=== PATIENT | female | born 1955 | race Caucasian/White ===

== ENCOUNTER → 2017-02-25 | Outpatient (CLI) | payer BC, OTHER ==
[~2017-02-25] VITALS: Ht 180.3 cm; Wt 82.1 kg
[~2017-02-25] MED LIST: DOCU-143 PO; HYDR-3812 PO; LISI-556 PO; METF500T4 PO; SIMV40TA4 PO
[2017-02-25 14:41] VITALS: BP 121/76
== END ==
LOC: PREOP 05:41
PROVIDERS: ATTEND Surgery
DX: Z01.818 Encounter for other preprocedural examination (principal); Z11.2 Encounter for screening for other bacterial diseases; C43.61 Malignant melanoma of right upper limb, including shoulder
CPT/HCPCS: 87081

== ENCOUNTER 2017-02-26 08:11 | Day surgery (SDC) | payer BC ==
[~2017-02-26] VITALS: Ht 180.3 cm; Wt 82.1 kg
[~2017-02-26 08:11] MED LIST changes: -DOCU-143 PO; -HYDR-3812 PO
[2017-02-26] MEDS ORDERED: CATHETER FLUSH 10 ML SYR IV PRN (08:45)
[2017-02-26] MEDS ORDERED: ceFAZolin 1 GM/NS 50 ML IVPB IV ONE ×2 (08:45)
--- NOTE | 2017-02-26 09:27 | Progress Note-Pre Operative ---
Pre-Operative Progress Note H&P Reviewed The H&P was reviewed, patient examined and no changes noted. Date Seen by Provider: Feb 26, 2017 Time Seen by Provider: : Date H&P Reviewed: Feb 26, 2017 Time H&P Reviewed: : Pre-Operative Diagnosis: MELANOMA RIGHT FOREARM, SKIN LESION LEFT HAND ART LARSON DO Feb 26, 2017 09:27
[2017-02-26] MEDS ORDERED: SEVOFLURANE (ULTANE) 15 ML INHAL SOLN ONE ×3 (09:29→10:45)
[2017-02-26] MEDS ORDERED: ONDANSETRON 4 MG/2 ML (SDV) Z0FRAN ONE (09:29)
[2017-02-26] MEDS ORDERED: LACTATED RINGERS 1,000 ML IV ONE (09:29)
[2017-02-26] MEDS ORDERED: proPOfol 200 MG/20 ML (DIPRIVAN) VIAL IV ONE (09:29)
[2017-02-26] MEDS ORDERED: MIDAZOLAM 2 MG/2 ML (VERSED) VIAL ONE (09:29)
[2017-02-26] MEDS ORDERED: LIDOCAINE PF 2% 5 ML (XYLOCAINE) VIAL ONE (09:29)
[2017-02-26] MEDS ORDERED: fentaNYL INJECTION 100 MCG/2 ML AMP ONE (09:29)
[2017-02-26] MEDS ORDERED: BUPIVACAINE 0.5% 30 ML (SENSORCAINE) VIAL ONE (09:30)
[2017-02-26] MEDS ORDERED: LIDOCAINE 1% INJ 20 ML (XYLOCAINE) VIAL ONE (09:30)
--- NOTE | 2017-02-26 09:33 | Progress Note ---
Subjective Date Seen by Provider: Feb 26, 2017 Time Seen by Provider: 09:32 Subjective/Events-last exam Just completed port placement. Chest x ray pending. Objective Exam Capillary Refill : General Appearance: Other (under anesthetic) Results Lab Laboratory Tests 02/26/17 08:28: Glucometer 112H Assessment/Plan Assessment/Plan Assessment/Plan aml, pancytopenia s/p port placement chest x ray pending will check on chest x ray will sign off, call for questions ART LRASON DO Feb 26, 2017 09:33
[2017-02-26] MEDS ORDERED: LACTATED RINGERS 1,000 ML IV PRN (09:38)
[2017-02-26 09:43] VITALS: BP 136/86
[2017-02-26] MEDS ORDERED: morphine INJ 10 MG/ML 1ML (SYR OR VIAL) IVP PRN (11:00)
[2017-02-26] MEDS ORDERED: ONDANSETRON 4 MG/2 ML (SDV) Z0FRAN IVP PRN (11:00)
[2017-02-26] MEDS ORDERED: MEPERIDINE (DEMEROL) INJ 50 MG/ML IVP PRN (11:00)
[2017-02-26] MEDS ORDERED: DOCU-143 PO ×2 (11:11)
[2017-02-26] MEDS ORDERED: HYDR-3812 PO ×2 (11:11)
--- NOTE | 2017-02-26 11:20 | Discharge Inst-Simple/Standard ---
Discharge Inst-Standard Discharge Medications New, Converted or Re-Newed RX: RX on Chart Patient Instructions/Follow Up Plan of Care/Instructions/FU: Follow up in clinic in 2 weeks Activity as Tolerated: No Discharge Diet: No Restrictions Other Inst to Patient Follow up Appt: Make appointment for 2 weeks. Instructions: No lifting greater than 10 pounds. No strenuous activity. May shower in 24 hours, no tub bath or soaking. Use incentive spirometer at home as directed. No Smoking Skin/Wound Care: May remove bandages. Keep wound clean and dry. Symptoms to Report: Appetite Changes, Extremity Discoloration, Numbness/Tingling, Swelling Increased , Bleeding Excessive, Eyesight Changes, Pain Increased, Urine Color Change, Constipation(Persistent), Fever over 101 degree F, Pain/Pressure in chest, Urinating Difficulty, Cough Up/Vomit Blood, Heart Beat Irreg/Pounding, Pain/ Pressure in jaw, Vaginal Bleeding Increase, Cramps in feet or legs, Lightheadedness, Pain/Pressure in shoulder, Diarrhea(Persistent), Memory Changes Suddenly, Questions/Concerns, Weight gain consecutive days, Dizziness/ Fainting, Nausea/Vomiting, Shortness of Breath, Weight gain over 2 pounds If questions or concerns contact your physician Or seek help at emergency department. JOSEPH CAMARGO APRN Feb 26, 2017 11:20 am
[2017-02-26 11:50] VITALS: BP 126/71
[2017-02-26 12:20] VITALS: BP 121/70
[2017-02-26 12:38] VITALS: BP 127/77
--- NOTE | 2017-02-26 14:27 | Progress Note-Post Operative ---
Post-Operative Progess Note Surgeon (s)/Shopper (s) Surgeon ART LARSON DO Shopper: NA Pre-Operative Diagnosis MELANOMA RIGHT FOREARM, SKIN LESION LEFT HAND Post-Operative Diagnosis SAME Procedure & Operative Findings Date of Procedure 02/26/17 Procedure Performed/Findings Excision left hand 1x2 cm and excision right forearm 8.8x4.2 cm Anesthesia Type gen Estimated Blood Loss Estimated blood loss (mL): min Specimens/Packing Specimens Removed skin lesions right forearm, and left hand ART LARSON DO Feb 26, 2017 2:27 pm
--- NOTE | 2017-02-26 16:25 | OPERATIVE REPORT ---
PROCEDURE PHYSICIAN: ART LARSON DATE OF PROCEDURE: 02/26/2017 PREOPERATIVE DIAGNOSES: 1. Melanoma right forearm. 2. Skin lesion left hand. POSTOPERATIVE DIAGNOSES: 1. Melanoma right forearm. 2. Skin lesion left hand. PROCEDURE: Excision of left hand skin lesion 1 x 2 cm and excision right forearm 8.8 x 4.2 cm. ANESTHESIA: General. ESTIMATED BLOOD LOSS: Minimal. COMPLICATIONS: None. INDICATIONS: The patient is a 61-year-old female with melanoma of the right forearm and skin lesion of the left hand. She understands the risks and benefits of the procedures and she has consented to the procedure as noted above. She understands all the risks and benefits. PROCEDURE: The patient was prepped and draped in sterile fashion. A surgical pause was performed. Left hand, local anesthetic was infiltrated to the area and an elliptical incision measuring 1 x 2 cm was made around it the taking skin and subcutaneous tissues. The skin was then closed using 3-0 nylon in a simple interrupted fashion. The area was then washed and dried and sterile bandage was applied. New instruments used. Local anesthetic was inserted into the right forearm. An elliptical incision measuring 8.8 x 4.2 cm was made around the lesion. Then the skin and subcutaneous tissue was removed. The specimen was labeled long suture lateral and short suture proximal. The skin was then mobilized using cautery. Skin was then closed using 2-0 nylon in a simple interrupted fashion. The area was then washed and dried. Mastisol and Steri-Strips were applied and sterile bandages were applied. The patient tolerated the procedure well without any complications. She was taken to recovery in stable condition. Job ID: [id number] Dictated Date: 02/26/2017 14:29:45 Application Packager Date: 02/26/2017 16:16:22 / hari
--- OUTSIDE RECORDS SUMMARY | 2017-03-04 05:25 | XMS REPORT ---
Author Author SKY CUBA eClinicalWorks Address Unknown Phone Unavailable Care Team Providers Care Supervisor Painting Department Name Role Phone SKY CUBA CP Unavailable Allergies, Adverse Reactions, Alerts Substance Reaction Event Type Codeine Info Not Available Drug Allergy Problems Problem Type Condition Code Onset Dates Condition Status Problem Actinic keratosis 702.0 Active Problem Unspecified breast screening V76.10 Active Problem Other and unspecified hyperlipidemia 272.4 Active Problem Dyslipidemia E78.5 Active Assessment Essential (primary) hypertension I10 Active Problem Hot flashes N95.1 Active Assessment Dyslipidemia E78.5 Active Assessment Hot flashes N95.1 Active Problem Essential (primary) hypertension I10 Active Problem Mixed hyperlipidemia 272.2 Active Problem Need for prophylactic vaccination and inoculation, Influenza V04.81 Active Problem Prediabetes R73.09 Active Problem Essential hypertension, benign 401.1 Active Problem Effusion of joint, other specified site 719.08 Active Problem Pain in joint, lower leg 719.46 Active Problem Spasm of muscle 728.85 Active Problem Dysfunction of Eustachian tube 381.81 Active Problem Acute bronchitis 466.0 Active Problem Other screening mammogram V76.12 Active Problem Abdominal pain, right upper quadrant 789.01 Active Problem Special screening for malignant neoplasms, colon V76.51 Active Assessment Prediabetes R73.09 Active Problem Shortness of breath 786.05 Active Problem Routine gynecological examination V72.31 Active Medications Medication Code System Code Instructions Start Date End Date Status Dosage Effexor XR [facility] [address]-60 37.5 MG Orally Once a day. May increase to 2 caps daily afte 2 weeks if no improvement Jul 25, 2015 1 capsule with food Pravastatin Sodium [facility] [address]-30 40 MG Orally 2 times a day Jul 25, 2015 1 tablet Lisinopril [facility] [address]-83 5 MG October 30, 2014 take 1 tablet (5 mg) by oral route once daily Alprazolam [facility] [address]-93 0.5 MG Aug 07, 2014 take 0.5 tablet by Oral route 2 times per day Procedures Procedure Coding System Code Date COMPLETE CBC W/AUTO DIFF WBC CPT-4 33464 Jul 25, 2015 LIPID PANEL CPT-4 90514 Jul 25, 2015 VENIPUNCT, ROUTINE* CPT-4 17718 Jul 25, 2015 GLYCATED HEMOGLOBIN TEST CPT-4 39196 Jul 25, 2015 COMPREHEN METABOLIC PANEL CPT-4 20681 Jul 25, 2015 Office Visit, Est Pt., Level 3 CPT-4 23831 Jul 25, 2015 Vital Signs Date/Time: Jul 25, 2015 Temperature 98.1 F Weight 180.8 lbs Height 71 in BMI 25.21 Index Blood Pressure Diastolic 78 mmHg Blood Pressure Systolic 118 mmHg Cardiac Monitoring Heart Rate 72 bpm Results Name Result Date Reference Range Unit Abnormality Flag A1C ----Hemoglobin A1c 5.7 [id number] 4.8-5.6 % H Written Authorization Summary Purpose eClinicalWorks Submission
--- OUTSIDE RECORDS SUMMARY | 2017-03-04 05:25 | XMS REPORT ---
Author Author [employer] [facility] Medical Staff Organization [facility] Address [address] [place], [place] [address] Phone [phone] Care Team Providers Care Look Out Tower Fire Watcher Name Role Phone MARAL OMALLEY MD PP [phone] Summary purpose TRANSITION OF CARE AUTO GENERATION Chief Complaint and Reason for Visit Admit Diagnosis 1 ABDOMINAL PAIN, RT UP QU Problem list No authorized problems tracked for continuity of care are available for this visit. Encounters No authorized problems tracked for encounter diagnoses are available for this visit. Medications No medications recorded for this patient visit Allergies, adverse reactions, alerts No allergy information is available for this patient. Immunizations No immunizations recorded for this patient visit Relevant diagnostic tests and/or laboratory data RESULTS Radiology Results [id number] Hepatobiliary Scan with EF PACs Image DATE OF EXAM: Nov 29 2014 [id number] SCAN W EF : RADIOLOGY REPORT DATE OF SERVICE: 11/29/14 HISTORY: Right upper quadrant pain RADIONUCLIDE HEPATOBILIARY SCAN WITH KINEVAC GALLBLADDER EJECTION [id number] HOURS 6.1 mCi 99m technetium Choletec was administered and abdominal imaging was performed. There is prompt uptake and excretion of the radionuclide by the liver parenchyma. Activity is readily identified in the bile ducts, gallbladder, and proximal small bowel. 1.66 mcg of Kinevac was slowly infused and further abdominal imaging was performed. Gallbladder contraction is normal with calculated ejection fraction of 84%. Patient experienced moderate pain symptomatology during the Kinevac infusion, rated by the patient as 6 on a scale of 10. IMPRESSION: 1. Normal radionuclide hepatobiliary scan and normal gallbladder ejection fraction of 84%. 2. Moderate pain symptomatology during the Kinevac infusion. Akshat Quintero MD MWDerrick/ia11/29/2014 13:28:00 / 11/29/2014 13:34:05 cc:Sky Warren PA-C This document has been electronically Signed by: On: DATE OF EXAM: Nov 29 2014 [id number] SCAN W EF : RADIOLOGY REPORT DATE OF SERVICE: 11/29/14 HISTORY: Right upper quadrant pain RADIONUCLIDE HEPATOBILIARY SCAN WITH KINEVAC GALLBLADDER EJECTION [id number] HOURS 6.1 mCi 99m technetium Choletec was administered and abdominal imaging was performed. There is prompt uptake and excretion of the radionuclide by the liver parenchyma. Activity is readily identified in the bile ducts, gallbladder, and proximal small bowel. 1.66 mcg of Kinevac was slowly infused and further abdominal imaging was performed. Gallbladder contraction is normal with calculated ejection fraction of 84%. Patient experienced moderate pain symptomatology during the Kinevac infusion, rated by the patient as 6 on a scale of 10. IMPRESSION: 1. Normal radionuclide hepatobiliary scan and normal gallbladder ejection fraction of 84%. 2. Moderate pain symptomatology during the Kinevac infusion. Akshat Quintero MD MWD/ia11/29/2014 13:28:00 / 11/29/2014 13:34:05 cc:Sky Warren PA-C This document has been electronically Signed by: AKSHAT QUINTERO On: Nov 29 20142:18P Result Amended on 2014-11-29 at 14:18:09. Previous status was DC. History of procedures Procedure Code Code Type Description Date Performed Performing Physician A9537 CPT-4 TC-99M MEBROFEN UP TO 15 MIN 11-29-2014 SKY WARREN J2805 CPT-4 SINCALIDE INJECTION 11-29-2014 SKY WARREN 76111 CPT-4 HEPATOBIL SYST IMAGE W/DRUG 11-29-2014 SKY WARREN Functional status No functional or cognitive status observations are available for this visit. Vital signs No authorized vital signs are available for this visit. Social history No Social History or smoking status observations were recorded for this visit. ( Unknown if ever smoked.) Treatment Plan No treatment plan text is available for this visit. Hospital discharge instructions No discharge instruction text is available for this visit.
--- OUTSIDE RECORDS SUMMARY | 2017-03-04 05:26 | XMS REPORT ---
Author Author Bartolome Jessica Organization eClinicalWorks Address Unknown Phone Unavailable Care Team Providers Care Educational Specialist Name Role Phone Bartolome Jessica CP Unavailable Allergies, Adverse Reactions, Alerts Substance Reaction Event Type Latex Info Not Available Drug Allergy Codeine Sulfate Info Not Available Drug Allergy Problems Problem Type Condition Code Onset Dates Condition Status Problem Benign neoplasm of skin of lower limb, including hip 216.7 Active Problem Hemangioma of skin and subcutaneous tissue 228.01 Active Problem Other seborrheic keratosis 702.19 Active Assessment 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 Active Problem Benign neoplasm of skin of upper limb, including shoulder 216.6 Active Problem Seborrheic keratoses L82.1 Active Problem Personal history of other malignant neoplasm of skin V10.83 Active Problem 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 Active Problem Benign neoplasm of skin of trunk, except scrotum 216.5 Active Problem Benign neoplasm of skin of other and unspecified parts of face 216.3 Active Problem Inflamed seborrheic keratosis 702.11 Active Problem Actinic keratosis 702.0 Active Medications Medication Code System Code Instructions Start Date End Date Status Dosage Aspir-81 [facility] [address]-99 not defined Pravastatin Sodium [facility] [address]-47 not defined Cinnamon Flavor NDC 0 not defined Effexor NDC 0 not defined Lisinopril [facility] [address]-74 not defined Prednisone NDC 0 not defined Procedures Procedure Coding System Code Date EXC MLGNT TRUNK/ARMS/LEGS LEXUS 1.1-2 CM CPT-4 81406 May 19, 2016 REPAIR SCALP/AXILLA/TRUNK/ARMS/LEGS 2.6-7.5CM CPT-4 15385 May 19, 2016 Results No Known Results Summary Purpose eClinicalWorks Submission
--- OUTSIDE RECORDS SUMMARY | 2017-03-04 05:26 | XMS REPORT ---
Author Author [facility] Medical Staff Organization [facility] Address [address] [place], [place] [address] Phone [phone] Care Team Providers Care Mortgage Funder Name Role Phone MARAL OMALLEY MD PP [phone] Summary purpose TRANSITION OF CARE AUTO GENERATION Chief Complaint and Reason for Visit No authorized Reason for Visit (Admitting Diagnosis) is available for this visit. Problem list No authorized problems tracked for [...] tests and/or laboratory data RESULTS Radiology Results [id number] SHOULDER XRAY - 3 VIEW PACs Image DATE OF EXAM: Dec 25 2014 RAD 1415-SHOULDER XRAY-3 VIEW- LEFT: RADIOLOGY REPORT DATE OF SERVICE: 12/25/14 HISTORY: Left shoulder pain LEFT SHOULDER 3 [id number] HOURS There is glenohumeral narrowing and spurring. A large exuberant osteophyte is present at the inferior aspect of the humeral head. This may represent a loose body that has fused with the humeral head. The AC joint is normal. There are no fractures. IMPRESSION: Severe glenohumeral osteoarthritis. Large osteophyte/fused or simulated loose body with the humeral head. Akshat Quintero MD MWDerrick/ny12/25/2014 10:29:00 / 12/25/2014 10:36:46 cc:Jah Crowe PA-C This document has been electronically Signed by: On: DATE OF EXAM: Dec 25 2014 RAD 1415-SHOULDER XRAY-3 VIEW- LEFT: RADIOLOGY REPORT DATE OF SERVICE: 12/25/14 HISTORY: Left shoulder pain LEFT SHOULDER 3 [id number] HOURS There is glenohumeral narrowing and spurring. A large exuberant osteophyte is present at the inferior aspect of the humeral head. This may represent a loose body that has fused with the humeral head. The AC joint is normal. There are no fractures. IMPRESSION: Severe glenohumeral osteoarthritis. Large osteophyte/fused or simulated loose body with the humeral head. Akshat Quintero MD MWDerrick/nh12/25/2014 10:29:00 / 12/25/2014 10:36:46 cc:Jah Crowe PA-C This document has been electronically Signed by: AKSHAT QUINTERO On: December 25:32P Result Amended on 2014-12-25 at 13:32:07. Previous status was MO. History of procedures No procedures recorded for this patient visit. Functional status No functional or cognitive status [...]
--- OUTSIDE RECORDS SUMMARY | 2017-03-04 05:26 | XMS REPORT ---
Author Author [facility] [employer] [facility] Medical Staff Organization [facility] [employer] [facility] Address [address] [place], [place] [address] Phone [phone] Care Team Providers Care Hot Punch Press Operator Name Role Phone MARAL OMALLEY MD PP [phone] Summary purpose TRANSITION OF CARE AUTO GENERATION [...] tests and/or laboratory data RESULTS Radiology Results [id number] Chest X-Ray - 2 View PACs Image DATE OF EXAM: 2015 RAD 0300-CHEST XRAY 2 VIEW : RADIOLOGY REPORT DATE OF SERVICE: 10/14/15 HISTORY: Cough CHEST 2 VIEWS 1520 HOURS The lungs are clear. Heart size and pulmonary vessels are normal. There is mild aortic tortuosity. There are no hilar abnormalities. IMPRESSION: Negative chest. MD KARAN Meeks/wv10/14/2015 15:33:00 / 10/14/2015 15:37:19 cc:Breana Juárez PA-C This document has been electronically Signed by: On: DATE OF EXAM: 2015 RAD 0300-CHEST XRAY 2 VIEW : RADIOLOGY REPORT DATE OF SERVICE: 10/14/15 HISTORY: Cough CHEST 2 VIEWS 1520 HOURS The lungs are clear. Heart size and pulmonary vessels are normal. There is mild aortic tortuosity. There are no hilar abnormalities. IMPRESSION: Negative chest. MD KARAN Meeks/wv10/14/2015 15:33:00 / 10/14/2015 15:37:19 cc:Breana Juárez PA-C This document has been electronically Signed by: HELEN PITTS MD On: 20156:58P Result Amended on 2015-10-14 at 18:58:39. Previous status was AK. History of procedures No procedures recorded for [...]
--- OUTSIDE RECORDS SUMMARY | 2017-03-04 05:26 | XMS REPORT ---
Author Author [facility] Medical Staff Organization [facility] Address [address] [place], [place] [address] Phone [phone] Care Team Providers Care Fish Smoker Name Role Phone MARAL OMALLEY MD PP [phone] Summary purpose TRANSITION OF CARE AUTO GENERATION [...] visit Relevant diagnostic tests and/or laboratory data No authorized results are available for this patient visit History of procedures Procedure Code Code Type Description Date Performed Performing Physician 52038 CPT-4 THERAPEUTIC EXERCISES 06-24-2015 SYED JACOBO 10244 CPT-4 PT EVALUATION 06-24-2015 SYED JACOBO 00614 CPT-4 THERAPEUTIC EXERCISES 06-26-2015 SYED JACOBO Functional status No functional or cognitive status [...]
--- OUTSIDE RECORDS SUMMARY | 2017-03-04 05:26 | XMS REPORT ---
Author Author [facility] Medical Staff Organization [facility] Address [address] [place], [place] [address] Phone [phone] Care Team Providers Care Mirror Painter Name Role Phone MARAL OMALLEY MD PP [phone] Summary purpose TRANSITION OF CARE AUTO GENERATION [...] for this patient visit History of procedures No procedures recorded for [...]
--- OUTSIDE RECORDS SUMMARY | 2017-03-04 05:26 | XMS REPORT ---
Author Author Radha Beasley [facility] eClinicalWorks Address Unknown Phone Unavailable Care Team Providers Care Prop Drawer Name Role Phone Radha Beasley Unavailable Allergies No Known Allergies Problems Problem Type Condition Code Onset Dates Condition Status Problem Benign neoplasm of skin of upper limb, including shoulder 216.6 Active Problem Other seborrheic keratosis 702.19 Active Problem Benign neoplasm of skin of lower limb, including hip 216.7 Active Problem Personal history of other malignant neoplasm of skin V10.83 Active Problem Inflamed seborrheic keratosis 702.11 Active Problem Seborrheic keratoses L82.1 Active Problem Benign neoplasm of skin of other and unspecified parts of face 216.3 Active Problem Hemangioma of skin and subcutaneous tissue 228.01 Active Problem Actinic keratosis 702.0 Active Problem Benign neoplasm of skin of trunk, except scrotum 216.5 Active Medications No Known Medications Results No Known Results Summary Purpose eClinicalWorks Submission
--- OUTSIDE RECORDS SUMMARY | 2017-03-04 05:26 | XMS REPORT ---
Author Author Radha Beasley [facility] eClinicalWorks Address Unknown Phone Unavailable Care Team Providers Care Anti Tank Missileman Name Role Phone Radha Beasley Unavailable Allergies [...]
--- OUTSIDE RECORDS SUMMARY | 2017-03-04 05:26 | XMS REPORT ---
Author Author [facility] Medical Staff Organization [facility] Address [address] [place], [place] [address] Phone [phone] Care Team Providers Care Construction Engineering Manager Name Role Phone MARAL OMALLEY MD PP [phone] Summary purpose TRANSITION OF CARE AUTO GENERATION [...]
--- OUTSIDE RECORDS SUMMARY | 2017-03-04 05:26 | XMS REPORT ---
Author Author SKY CUBA [facility] eClinicalWorks Address Unknown Phone Unavailable Care Team Providers Care Cut In Worker Name Role Phone SKY CUBA CP Unavailable Allergies No Known Allergies Problems Problem Type Condition Code Onset Dates Condition Status Problem Essential (primary) hypertension I10 Active Problem Dyslipidemia E78.5 Active Problem Mixed hyperlipidemia E78.2 Active Problem Hot flashes N95.1 Active Problem Prediabetes R73.09 Active Medications Medication Code System Code Instructions Start Date End Date Status Dosage [place] [facility] [address]-94 40 mg Orally Once a day May 13, 2016 Take 1 tablet Results No Known Results Summary Purpose eClinicalWorks Submission
--- OUTSIDE RECORDS SUMMARY | 2017-03-04 05:26 | XMS REPORT ---
Author Author [facility] Medical Staff Organization [facility] Address [address] [place], [place] [address] Phone [phone] Care Team Providers Care Patrol Lady Name Role Phone MARAL OMALLEY MD PP [phone] Summary purpose TRANSITION OF CARE AUTO GENERATION [...]
--- OUTSIDE RECORDS SUMMARY | 2017-03-04 05:26 | XMS REPORT ---
Author Author [email or web address] Medical Staff Organization [facility] Address [address] [place], [place] [address] Phone [phone] Summary purpose TRANSITION OF CARE AUTO GENERATION [...] tests and/or laboratory data RESULTS Radiology Results [id number]:00 Bilateral Screen Digital Mammo PACs Image DATE OF EXAM: Oct 29 2015 [facility] 0845-BILAT SCREEN DIG MAMMO : RADIOLOGY REPORT DATE OF SERVICE: 10/29/15 HISTORY: Screening exam BILATERAL DIGITAL SCREENING MAMMOGRAM WITH iCAD SecondLook 7.2-H+ 1105 HOURS Comparison is made with 10/19/2014 and 09/01/2013. Heterogeneously dense glandular tissue is again noted which could obscure detection of small masses. There are no irregular masses or grouped microcalculi. There is no distortion or asymmetry. Prominent skin moles bilaterally are stable. IMPRESSION: Stable benign mammograms BI-RADS II. Akshat Quintero MD Derrick/wv10/29/2015 11:40:00 / 10/29/2015 11:45:35 cc:Joaquim Warren PA-C This document has been electronically Signed by: On: DATE OF EXAM: Oct 29 2015 [facility] 0845-BILAT SCREEN DIG MAMMO : RADIOLOGY REPORT DATE OF SERVICE: 10/29/15 HISTORY: Screening exam BILATERAL DIGITAL SCREENING MAMMOGRAM WITH iCAD SecondLook 7.2-H+ 1105 HOURS Comparison is made with 10/19/2014 and 09/01/2013. Heterogeneously dense glandular tissue is again noted which could obscure detection of small masses. There are no irregular masses or grouped microcalculi. There is no distortion or asymmetry. Prominent skin moles bilaterally are stable. IMPRESSION: Stable benign mammograms BI-RADS II. Akshat Quintero MD MWD/wv10/29/2015 11:40:00 / 10/29/2015 11:45:35 cc:Joaquim Warren PA-C This document has been electronically Signed by: AKSHAT QUINTERO MD On: Oct 29 20151:37P Result Amended on 2015-10-29 at 13:37:20. Previous status was DC. History of procedures No procedures recorded for [...]
--- OUTSIDE RECORDS SUMMARY | 2017-03-04 05:26 | XMS REPORT ---
Author Author [facility] Medical Staff Organization [facility] Address [address] [place], [place] [address] Phone [phone] Care Team Providers Care Financial Services Rep Name Role Phone MARAL OMALLEY MD PP [phone] Summary purpose TRANSITION OF CARE AUTO GENERATION Chief Complaint and Reason for Visit Admit Diagnosis 1 ABDOMINAL PAIN, RT UP QU Problem list No authorized problems tracked for continuity of care are available for this visit. Encounters No authorized problems tracked for encounter diagnoses are available for this visit. Medications No home medications recorded for this patient visit Allergies, adverse reactions, alerts No allergy information is available for this patient. Immunizations No immunizations recorded for this patient visit Relevant diagnostic tests and/or laboratory data RESULTS Radiology Results [id number] ABD SONO COMPLETE PACs Image DATE OF EXAM: Nov 02 2014 [id number] COMPLETE SONO : RADIOLOGY REPORT DATE OF SERVICE: 11/02/14 HISTORY: Right upper quadrant abdominal pain COMPLETE ABDOMINAL SONOGRAM 0830 HOURS The gallbladder is at the upper limits of normal in size without wall thickening or definite gallstones. The bile ducts are normal in caliber. The liver, spleen, and pancreas are normal. The kidneys are unobstructed with no masses or calculi. The abdominal aorta and inferior vena cava are normal. There is no ascites. IMPRESSION: Mildly distended gallbladder. If there is clinical or laboratory evidence of gallbladder disease, suggest correlation with radionuclide hepatobiliary scan and gallbladder ejection fraction. MD KARAN Meeks/me11/02/2014 08:45:00 / 11/02/2014 09:40:32 cc:Sky Warren PA-C This document has been electronically Signed by: On: DATE OF EXAM: Nov 02 2014 [id number] COMPLETE SONO : RADIOLOGY REPORT DATE OF SERVICE: 11/02/14 HISTORY: Right upper quadrant abdominal pain COMPLETE ABDOMINAL SONOGRAM 0830 HOURS The gallbladder is at the upper limits of normal in size without wall thickening or definite gallstones. The bile ducts are normal in caliber. The liver, spleen, and pancreas are normal. The kidneys are unobstructed with no masses or calculi. The abdominal aorta and inferior vena cava are normal. There is no ascites. IMPRESSION: Mildly distended gallbladder. If there is clinical or laboratory evidence of gallbladder disease, suggest correlation with radionuclide hepatobiliary scan and gallbladder ejection fraction. Akshat Quintero MD MWD/nh11/02/2014 08:45:00 / 11/02/2014 09:40:32 cc:Sky Warren PA-C This document has been electronically Signed by: AKSHAT QUINTERO On: Nov 02 20144:12P Result Amended on 2014-11-02 at 16:12:09. Previous status was [place]. History of procedures Procedure Code Code Type Description Date Performed Performing Physician 27666 CPT-4 US EXAM, ABDOM, COMPLETE 11-02-2014 SKY WARREN Functional status No functional or [...]
--- OUTSIDE RECORDS SUMMARY | 2017-03-04 05:26 | XMS REPORT ---
Author Author MARAL OMALLEY Organization [employer] Address Unknown Phone Unavailable Care Team Providers Care Innovations Paraprofessional Name Role Phone MARAL OMALLEY CP Unavailable Allergies No Known Allergies Problems Problem Type Condition Code Onset Dates Condition Status Problem Dyslipidemia E78.5 Active Problem Hot flashes N95.1 Active Problem Essential (primary) hypertension I10 Active Problem Prediabetes R73.09 Active Medications No Known Medications Results No Known Results Summary Purpose eClinicalWorks Submission
--- OUTSIDE RECORDS SUMMARY | 2017-03-04 05:26 | XMS REPORT ---
Author Author SKY CUBA Organization [employer] Address Unknown Phone Unavailable Care Team Providers Care Groundman/Lineman Name Role Phone SKY CUBA CP Unavailable Allergies No Known Allergies Problems Problem Type Condition Code Onset Dates Condition Status Problem Dyslipidemia E78.5 Active Problem Hot flashes N95.1 Active Problem Essential (primary) hypertension I10 Active Problem Prediabetes R73.09 Active Medications Medication Code System Code Instructions Start Date End Date Status Dosage Effexor XR [facility] [address]-32 37.5 MG Jul 25, 2015 2 capsules by mouth with food once daily. Results No Known Results Summary Purpose eClinicalWorks Submission
--- OUTSIDE RECORDS SUMMARY | 2017-03-04 05:26 | XMS REPORT ---
Author Author MARAL OMALLEY Organization [employer] Address Unknown Phone Unavailable Care Team Providers Care Hoisting Pile Driving Engineer Name Role Phone MARAL OMALLEY CP Unavailable Allergies No Known Allergies Problems Problem Type Condition Code Onset Dates Condition Status Problem Dyslipidemia E78.5 Active Problem Hot flashes N95.1 Active Problem Essential (primary) hypertension I10 Active Problem Prediabetes R73.09 Active Medications Medication Code System Code Instructions Start Date End Date Status Dosage Alprazolam [facility] [address]-15 0.5 MG Aug 07, 2014 take 0.5 tablet by Oral route 2 times per day Results No Known Results Summary Purpose [employer]ClinicalWorks Submission
--- OUTSIDE RECORDS SUMMARY | 2017-03-04 05:26 | XMS REPORT ---
Author Author MARAL OMALLEY Organization [employer] Address Unknown Phone Unavailable Care Team Providers Care Stitch Cleaner Name Role Phone MARAL OMALLEY CP Unavailable Allergies No Known Allergies Problems Problem Type Condition Code Onset Dates Condition Status Problem Acute bronchitis 466.0 Active Problem Special screening for malignant neoplasms, colon V76.51 Active Problem Other screening mammogram V76.12 Active Problem Mixed hyperlipidemia 272.2 Active Problem Need for prophylactic vaccination and inoculation, Influenza V04.81 Active Problem Essential hypertension, benign 401.1 Active Problem Actinic keratosis 702.0 Active Problem Routine gynecological examination V72.31 Active Problem Unspecified breast screening V76.10 Active Problem Other and unspecified hyperlipidemia 272.4 Active Problem Effusion of joint, other specified site 719.08 Active Problem Pain in joint, lower leg 719.46 Active Problem Spasm of muscle 728.85 Active Problem Abdominal pain, right upper quadrant 789.01 Active Problem Dysfunction of Eustachian tube 381.81 Active Problem Shortness of breath 786.05 Active Medications Medication Code System Code Instructions Start Date End Date Status Dosage Alprazolam [facility] [address]-89 0.5 MG Aug 07, 2014 take 0.5 tablet by Oral route 2 times per day Results No Known Results Summary Purpose eClinicalWorks Submission
--- OUTSIDE RECORDS SUMMARY | 2017-03-04 05:26 | XMS REPORT ---
Author Author [facility] Medical Staff Organization [facility] Address [address] [place], [place] [address] Phone [phone] Care Team Providers Care Drum Sander Setter Name Role Phone MARAL OMALLEY MD PP [phone] Summary purpose TRANSITION OF CARE AUTO GENERATION [...] tests and/or laboratory data RESULTS Radiology Results [id number]:18:00 Hepatobiliary Scan with EF PACs Image DATE OF EXAM: Nov 29 2014 [id number] SCAN W EF : RADIOLOGY REPORT DATE OF SERVICE: 11/29/14 HISTORY: Right upper quadrant pain RADIONUCLIDE HEPATOBILIARY SCAN WITH KINEVAC GALLBLADDER EJECTION [id number] HOURS 6.1 mCi 99m technetium Choletec was [...] Moderate pain symptomatology during the Kinevac infusion. MD KARAN Meeks/ks11/29/2014 13:28:00 / 11/29/2014 13:34:05 cc:Joaquim Warren PA-C This document has been electronically Signed by: On: DATE OF EXAM: Nov 29 2014 [id number] SCAN W EF : RADIOLOGY REPORT DATE OF SERVICE: 11/29/14 HISTORY: Right upper quadrant pain RADIONUCLIDE HEPATOBILIARY SCAN WITH KINEVAC GALLBLADDER EJECTION [id number] HOURS 6.1 mCi 99m technetium Choletec was [...] during the Kinevac infusion. Akshat Quintero MD MWD/nh11/29/2014 13:28:00 / 11/29/2014 13:34:05 cc:Joaquim Warren PA-C This document has been electronically Signed by: AKSHAT QUINTERO On: Nov 29:18P Result Amended on 2014-11-29 at 14:18:09. Previous status was [place]. History of procedures No procedures recorded for [...]
--- OUTSIDE RECORDS SUMMARY | 2017-03-04 05:27 | XMS REPORT ---
Author Author [facility] Medical Staff Organization [facility] Address [address] [place], [place] [address] Phone [phone] Care Team Providers Care Test Engineering Intern Name Role Phone MARAL OMALLEY MD PP [phone] Summary purpose TRANSITION OF CARE AUTO GENERATION [...]
--- OUTSIDE RECORDS SUMMARY | 2017-03-04 05:27 | XMS REPORT | Continuity of Care Document ---
Author Author [facility] Address Unknown Phone Unavailable Allergies Medications Problems Date Dx Coded Attending Type Code Diagnosis Diagnosed By 05/10/2013 MARAL OMALLEY MD 272.2 MIXED HYPERLIPIDEMIA 05/10/2013 MARAL OMALLEY MD 401.1 BENIGN ESSENTIAL HYPERTENSION 05/10/2013 MARAL OMALLEY MD V04.81 FLU SHOT 05/10/2013 MARAL OMALLEY MD 272.2 MIXED HYPERLIPIDEMIA 05/10/2013 MARAL OMALLEY MD 401.1 BENIGN ESSENTIAL HYPERTENSION 05/10/2013 MARAL OMALLEY MD V04.81 FLU SHOT 05/10/2013 MARAL OMALLEY MD 272.2 MIXED HYPERLIPIDEMIA 05/10/2013 MARAL OMALLEY MD 401.1 BENIGN ESSENTIAL HYPERTENSION 05/10/2013 MARAL OMALLEY MD V04.81 FLU SHOT 05/10/2013 MARAL OMALLEY MD 272.2 MIXED HYPERLIPIDEMIA 05/10/2013 MARAL OMALLEY MD 401.1 BENIGN ESSENTIAL HYPERTENSION 05/10/2013 MARAL OMALLEY MD V04.81 FLU SHOT 05/10/2013 MARAL OMALLEY MD 272.2 MIXED HYPERLIPIDEMIA 05/10/2013 MARAL OMALLEY MD 401.1 BENIGN ESSENTIAL HYPERTENSION 05/10/2013 MARAL OMALLEY MD V04.81 FLU SHOT 05/10/2013 MARAL OMALLEY MD 272.2 MIXED HYPERLIPIDEMIA 05/10/2013 MARAL OMALLEY MD 401.1 BENIGN ESSENTIAL HYPERTENSION 05/10/2013 MARAL OMALLEY MD V04.81 FLU SHOT 08/16/2013 MARAL OMALLEY MD 272.4 HYPERLIPIDEMIA 08/16/2013 MARAL OMALLEY MD 702.0 ACTINIC KERATOSIS 08/16/2013 MARAL OMALLEY MD V72.31 BIAS CUTTER HELPER EXAM, ROUTINE 08/16/2013 MARAL OMALLEY MD V76.10 BREAST CANCER SCREENING 08/16/2013 MARAL OMALLEY MD V76.12 MAMMOGRAM SCREENING 08/16/2013 MARAL OMALLEY MD V76.51 COLON CANCER SCREENING 08/16/2013 MARAL OMALLEY MD 272.4 HYPERLIPIDEMIA 08/16/2013 MARAL OMALLEY MD 702.0 ACTINIC KERATOSIS 08/16/2013 MARAL OMALLEY MD V72.31 BIAS CUTTER HELPER EXAM, ROUTINE 08/16/2013 MARAL OMALLEY MD V76.10 BREAST CANCER SCREENING 08/16/2013 MARAL OMALLEY MD V76.12 MAMMOGRAM SCREENING 08/16/2013 MARAL OMALLEY MD V76.51 COLON CANCER SCREENING 08/16/2013 MARAL OMALLEY MD 272.4 HYPERLIPIDEMIA 08/16/2013 MARAL OMALLEY MD 702.0 ACTINIC KERATOSIS 08/16/2013 MARAL OMALLEY MD V72.31 BIAS CUTTER HELPER EXAM, ROUTINE 08/16/2013 MARAL OMALLEY MD V76.10 BREAST CANCER SCREENING 08/16/2013 MARAL OMALLEY MD V76.12 MAMMOGRAM SCREENING 08/16/2013 MARAL OMALLEY MD V76.51 COLON CANCER SCREENING 08/16/2013 MARAL OMALLEY MD 272.4 HYPERLIPIDEMIA 08/16/2013 MARAL OMALLEY MD 702.0 ACTINIC KERATOSIS 08/16/2013 MARAL OMALLEY MD V72.31 BIAS CUTTER HELPER EXAM, ROUTINE 08/16/2013 MARAL OMALLEY MD V76.10 BREAST CANCER SCREENING 08/16/2013 MARAL OMALLEY MD V76.12 MAMMOGRAM SCREENING 08/16/2013 MARAL OMALLEY MD V76.51 COLON CANCER SCREENING 08/16/2013 MARAL OMALLEY MD 272.4 HYPERLIPIDEMIA 08/16/2013 MARAL OMALLEY MD 702.0 ACTINIC KERATOSIS 08/16/2013 MARAL OMALLEY MD V72.31 BIAS CUTTER HELPER EXAM, ROUTINE 08/16/2013 MARAL OMALLEY MD V76.10 BREAST CANCER SCREENING 08/16/2013 MARAL OMALLEY MD V76.12 MAMMOGRAM SCREENING 08/16/2013 MARAL OMALLEY MD V76.51 COLON CANCER SCREENING 10/06/2013 MARAL OMALLEY MD 381.81 EUSTACHIAN TUBE DYSFUNCTION 10/06/2013 MARAL OMALLEY MD 719.08 EFFUSION OF JOINT OF OTHER SPECIFIED SITES 10/06/2013 MARAL OMALLEY MD 719.46 PAIN IN JOINT INVOLVING LOWER LEG 10/06/2013 MARAL OMALLEY MD 381.81 EUSTACHIAN TUBE DYSFUNCTION 10/06/2013 MARAL OMALLEY MD 719.08 EFFUSION OF JOINT OF OTHER SPECIFIED SITES 10/06/2013 MARAL OMALLEY MD 719.46 PAIN IN JOINT INVOLVING LOWER LEG 10/06/2013 MARAL OMALLEY MD 381.81 EUSTACHIAN TUBE DYSFUNCTION 10/06/2013 MARAL OMALLEY MD 719.08 EFFUSION OF JOINT OF OTHER SPECIFIED SITES 10/06/2013 MARAL OMALLEY MD 719.46 PAIN IN JOINT INVOLVING LOWER LEG 10/06/2013 MARAL OMALLEY MD 381.81 EUSTACHIAN TUBE DYSFUNCTION 10/06/2013 MARAL OMALLEY MD 719.08 EFFUSION OF JOINT OF OTHER SPECIFIED SITES 10/06/2013 MARAL OMALLEY MD 719.46 PAIN IN JOINT INVOLVING LOWER LEG 10/17/2013 MARAL OMALLEY MD 466.0 BRONCHITIS, ACUTE 10/17/2013 MARAL OMALLEY MD 786.05 SHORTNESS OF BREATH 10/17/2013 MARAL OMALLEY MD 466.0 BRONCHITIS, ACUTE 10/17/2013 MARAL OMALLEY MD 786.05 SHORTNESS OF BREATH 10/17/2013 MARAL OMALLEY MD 466.0 BRONCHITIS, ACUTE 10/17/2013 MARAL OMALLEY MD 786.05 SHORTNESS OF BREATH 10/17/2013 MARAL OMALLEY MD 466.0 BRONCHITIS, ACUTE 10/17/2013 MARAL OMALLEY MD 786.05 SHORTNESS OF BREATH 08/06/2014 MARAL OMALLEY MD 728.85 MUSCLE SPASM 08/06/2014 MARAL OMALLEY MD 728.85 MUSCLE SPASM 10/30/2014 MARAL OMALLEY MD 789.01 ABDOMINAL PAIN RIGHT UPPER QUADRANT Procedures Code Description [place] [address] CBC 05/10/2013 42024 LIPID PANEL 05/10 40505 CMP 05/10/2013 3045723 GFR CALC (RESULT ONLY) 05/10/2013 30118 HEMOCCULT 2013 43097 MAMMOGRAM, SCREENING 08/16/2013 [facility] 08/16/2013 80310 CRYOTHERAPY OF SKIN 08/21/2013 61736 MAMMOGRAM, SCREENING 08/21/2013 76727 PAP SMEAR 2013 [facility] 08/21/2013 81355 XRAY KNEE RIGHT 3 VIEWS 10/06/2013 49930 ROUTINE VENIPUNCTURE 07/25/2014 14735 CMP 07/26/2014 17578 LIPID PANEL 07/26 69159 CBC 07/26/2014 36978 MAMMOGRAM, SCREENING 08/22/2014 42340 HIDA SCAN 2014 50496 ROUTINE VENIPUNCTURE 10/30/2014 45740 CMP 10/30/2014 5061746 GFR CALC (RESULT ONLY) 10/30/2014 30437 US ABDOMINAL ULTRASOUND, COMPLETE 11/02/2014 56522 CHEST X-RAY 10/13 20593 COMP SCREEN MAMMOGRAM ADD-ON 10/29/2015 09224 MAMMOGRAM, SCREENING 10/29/2015 Results Encounters ACCT No. Visit Date/Time Discharge Status Pt. Type Provider Facility Loc./Unit Complaint [id number] 10/30/2014 14:36:00 10/30/2014 23: 59:59 CLS Outpatient MARAL OMALLEY MD [id number] 08/06/2014 10:15:00 08/06/2014 23: 59:59 CLS Outpatient MARAL OMALLEY MD [id number] 07/25/2014 08:51:00 07/25/2014 23: 59:59 CLS Outpatient MARAL OMALLEY MD [id number] 10/17/2013 09:55:00 10/17/2013 23: 59:59 CLS Outpatient MARAL OMALLEY MD [id number] 08/16/2013 08:42:00 08/16/2013 23: 59:59 CLS Outpatient MARAL OMALLEY MD [id number] 05/10/2013 09:33:00 05/10/2013 23: 59:59 CLS Outpatient MARAL OMALLEY MD
--- OUTSIDE RECORDS SUMMARY | 2017-03-04 05:27 | XMS REPORT ---
Author Author MARAL OMALLEY Organization [employer]Works Address Unknown Phone Unavailable Care Team Providers Care Front End Developer Designer Name Role Phone MARAL OMALLEY CP Unavailable [...] Instructions Start Date End Date Status Dosage Lisinopril [facility] [address]-08 5 MG October 30, 2014 take 1 tablet (5 mg) by oral route once daily Results No Known Results Summary Purpose eClinicalWorks Submission
--- OUTSIDE RECORDS SUMMARY | 2017-03-04 05:27 | XMS REPORT ---
Author Author SKY CUBA [facility] e[employer] Address Unknown Phone Unavailable Care Team Providers Care Coil Winder Hand Name Role Phone SKY CUBA CP Unavailable Allergies No Known Allergies Problems Problem Type Condition Code Onset Dates Condition Status Problem Routine gynecological examination V72.31 Active Problem Other and unspecified hyperlipidemia 272.4 Active Problem Actinic keratosis 702.0 Active Problem Dyslipidemia E78.5 Active Problem Hot flashes N95.1 Active Problem Essential (primary) hypertension I10 Active Problem Need for prophylactic vaccination and inoculation, Influenza V04.81 Active Problem Unspecified breast screening V76.10 Active Problem Essential hypertension, benign 401.1 Active Problem Mixed hyperlipidemia 272.2 Active Problem Dysfunction of Eustachian tube 381.81 Active Problem Effusion of joint, other specified site 719.08 Active Problem Spasm of muscle 728.85 Active Problem Shortness of breath 786.05 Active Problem Acute bronchitis 466.0 Active Problem Pain in joint, lower leg 719.46 Active Problem Other screening mammogram V76.12 Active Problem Abdominal pain, right upper quadrant 789.01 Active Problem Special screening for malignant neoplasms, colon V76.51 Active Medications Medication Code System Code Instructions Start Date End Date Status Dosage Effexor XR [facility] [address]-36 37.5 MG Orally Once a day. May increase to 2 caps daily afte 2 weeks if no improvement Jul 25, 2015 1 capsule with food Results No Known Results Summary Purpose eClinicalWorks Submission
--- OUTSIDE RECORDS SUMMARY | 2017-03-04 05:27 | XMS REPORT ---
Author Author [facility] Medical Staff Organization [facility] Address [address] [place], [place] [address] Phone [phone] Care Team Providers Care Burr Bench Hand Name Role Phone MARAL OMALLEY MD PP [phone] Summary purpose TRANSITION OF CARE AUTO GENERATION [...] tests and/or laboratory data RESULTS Radiology Results [id number]:58:00 Chest X-Ray - 2 View PACs Image DATE OF EXAM: 2015 RAD 0300-CHEST XRAY 2 VIEW : RADIOLOGY REPORT DATE OF SERVICE: 10/14/15 HISTORY: Cough CHEST 2 VIEWS 1520 HOURS The lungs are clear. Heart size and pulmonary vessels are normal. There is mild aortic tortuosity. There are no hilar abnormalities. IMPRESSION: Negative chest. MD KARAN Meeks/sd10/14/2015 15:33:00 / 10/14/2015 15:37:19 cc:Chris Juárez PA-C This document has been electronically Signed by: On: DATE OF EXAM: 2015 RAD 0300-CHEST XRAY 2 VIEW : RADIOLOGY REPORT DATE OF SERVICE: 10/14/15 HISTORY: Cough CHEST 2 VIEWS 1520 HOURS The lungs are clear. Heart size and pulmonary vessels are normal. There is mild aortic tortuosity. There are no hilar abnormalities. IMPRESSION: Negative chest. MD KARAN Meeks/sd10/14/2015 15:33:00 / 10/14/2015 15:37:19 cc:Chris Juárez PA-C This document has been electronically Signed by: HELEN PITTS [place] On: 20156:58P Result Amended on 2015-10-14 at 18:58:39. Previous status was [place]. History of procedures Procedure Code Code Type Description Date Performed Performing Physician 50668 CPT-4 CHEST X-RAY 2VW FRONTAL&LATL 10-14-2015 CHRIS JUÁREZ Functional status No functional or cognitive status [...]
--- OUTSIDE RECORDS SUMMARY | 2017-03-04 05:27 | XMS REPORT ---
Author Author [facility] Medical Staff Organization [facility] Address [address] [place], [place] [address] Phone [phone] Summary purpose TRANSITION OF CARE AUTO GENERATION [...] tests and/or laboratory data RESULTS Radiology Results [id number]:37:00 Bilateral Screen Digital Mammo PACs Image DATE OF EXAM: Oct 29 2015 [facility] 0845-BILAT SCREEN DIG MAMMO : RADIOLOGY REPORT [...] benign mammograms BI-RADS II. Akshat Quintero MD Derrick/id10/29/2015 11:40:00 / 10/29/2015 11:45:35 cc:Joaquim Warren PA-C This document has been electronically Signed by: On: DATE OF EXAM: Oct 29 2015 [facility] 0845-BILAT SCREEN DIG MAMMO : RADIOLOGY REPORT [...] benign mammograms BI-RADS II. Akshat Quintero MD MWD/id10/29/2015 11:40:00 / 10/29/2015 11:45:35 cc:Joaquim Warren PA-C This document has been electronically Signed by: AKSHAT QUINTERO MD On: Oct 29 20151:37P Result Amended on 2015-10-29 at 13:37:20. Previous status was [place]. History of procedures Procedure Code Code Type Description Date Performed Performing Physician 31453 CPT-4 MAMMOGRAM SCREENING 10-29-2015 MARAL OMALLEY 82914 CPT-4 COMP SCREEN MAMMOGRAM ADD-ON 10-29-2015 MARAL OMALLEY Functional status No functional or cognitive status [...]
--- OUTSIDE RECORDS SUMMARY | 2017-03-04 05:27 | XMS REPORT ---
Author Author SKY CUBA [employer] Address Unknown Phone Unavailable Care Team Providers Care Curer Foam Rubber Name Role Phone SKY CUBA CP Unavailable Allergies, Adverse Reactions, Alerts Substance Reaction Event Type Codeine Info Not Available Drug Allergy Problems Problem Type Condition Code Onset Dates Condition Status Assessment Tremor R25.1 Active Assessment Mixed hyperlipidemia E78.2 Active Problem Essential (primary) hypertension I10 Active Problem Dyslipidemia E78.5 Active Problem Mixed hyperlipidemia E78.2 Active Assessment Prediabetes R73.09 Active Assessment Essential (primary) hypertension I10 Active Problem Hot flashes N95.1 Active Problem Prediabetes R73.09 Active Medications Medication Code System Code Instructions Start Date End Date Status Dosage Pravastatin Sodium [facility] [address]-35 40 MG Orally 2 times a day Jul 25, 2015 1 tablet Lisinopril [facility] [address]-35 5 MG October 30, 2014 take 1 tablet (5 mg) by oral route once daily Alprazolam [facility] [address]-73 0.5 MG Aug 07, 2014 take 0.5 tablet by Oral route 2 times per day Effexor XR [facility] [address]-16 37.5 MG Jul 25, 2015 2 capsules by mouth with food once daily. ReliOn Prime Test [facility] 8317-226036 - Once a day May 04, 2016 as directed Procedures Procedure Coding System Code Date ASSAY THYROID STIM HORMONE CPT-4 75173 May 04, 2016 COMPLETE CBC W/AUTO DIFF WBC CPT-4 72462 May 04, 2016 GLYCATED HEMOGLOBIN TEST CPT-4 18438 May 04, 2016 COMPREHEN METABOLIC PANEL CPT-4 76907 May 04, 2016 LIPID PANEL CPT-4 87986 May 04, 2016 Office Visit, Est Pt., Level 3 CPT-4 47342 May 04, 2016 VENIPUNCT, ROUTINE* CPT-4 97942 May 04, 2016 Vital Signs Date/Time: May 04, 2016 Cardiac Monitoring Heart Rate 88 bpm Weight 179.4 lbs Height 71 in BMI 25.02 Index Blood Pressure Diastolic 70 mmHg Blood Pressure Systolic 132 mmHg Results Name Result Date Reference Range Unit Abnormality Flag TSH ----TSH 1.270 20160504 0.450-4.500 uIU/mL CBC ----Basos 1 20160504 % ----MCV 86 20160504 79-97 fL ----Hematocrit 41.8 02511027 34.0-46.6 % ----Eos 6 20160504 % ----MCHC 31.8 69887080 31.5-35.7 g/dL ----Monocytes 7 05539999 % ----MCH 27.5 95152824 26.6-33.0 pg ----Lymphs 27 27503670 % ----Eos (Absolute) 0.4 06524862 0.0-0.4 x10E3/uL ----WBC 6.6 56306791 3.4-10.8 x10E3/uL ----Monocytes(Absolute) 0.5 85421670 0.1-0.9 x10E3/uL ----Lymphs (Absolute) 1.8 97346373 0.7-3.1 x10E3/uL ----Hemoglobin 13.3 05280454 11.1-15.9 g/dL ----Neutrophils (Absolute) 4.0 39480561 1.4-7.0 x10E3/uL ----RBC 4.84 84950288 3.77-5.28 x10E6/uL ----Immature Grans (Abs) 0.0 20160504 0.0-0.1 x10E3/uL ----Immature Granulocytes 0 20160504 % ----Neutrophils 59 20160504 % ----Baso (Absolute) 0.1 37861082 0.0-0.2 x10E3/uL ----RDW 15.2 26154931 12.3-15.4 % ----Platelets 236 [id number] 150-379 x10E3/uL A1C (IN HOUSE) ----A1C IN HOUSE 6.0 20160504 4.3 - 5.6 % ----Previous A1c 5.7 20160504 ----Lot 0617 20160504 ----Exp date 20160504 ROUTINE VENIPUNCTURE LIPID PANEL ----LDL Cholesterol Calc 101 05428318 0-99 mg/dL H ----VLDL Cholesterol Eliot 60 37153769 5-40 mg/dL H ----HDL Cholesterol 91 85393793 >39 mg/dL ----Triglycerides 298 36472961 0-149 mg/dL H ----Cholesterol, Total 252 20160504 100-199 mg/dL H CMP ----Creatinine, Serum 0.68 84495819 0.57-1.00 mg/dL ----BUN 17 20160504 8-27 mg/dL ----eGFR If Africn Am 110 26690313 >59 mL/min/1.73 ----eGFR If NonAfricn Am 95 85820795 >59 mL/min/1.73 ----Sodium, Serum 141 20160504 134-144 mmol/L ----BUN/Creatinine Ratio 25 20160504 11-26 ----Chloride, Serum 100 20160504 97-108 mmol/L ----Potassium, Serum 4.4 21320730 3.5-5.2 mmol/L ----Carbon Dioxide, Total 25 20160504 18-29 mmol/L ----Protein, Total, Serum 7.4 20160504 6.0-8.5 g/dL ----Calcium, Serum 9.4 20160504 8.7-10.3 mg/dL ----Globulin, Total 2.6 20160504 1.5-4.5 g/dL ----Albumin, Serum 4.8 41305288 3.6-4.8 g/dL ----Bilirubin, Total 0.2 56098045 0.0-1.2 mg/dL ----Glucose, Serum 96 20160504 65-99 mg/dL ----A/G Ratio 1.8 20160504 1.1-2.5 ----ALT (SGPT) 24 20160504 0-32 IU/L ----Alkaline Phosphatase, S 74 20160504 39-117 IU/L ----AST (SGOT) 17 20160504 0-40 IU/L Summary Purpose eClinicalWorks Submission
--- OUTSIDE RECORDS SUMMARY | 2017-03-04 05:27 | XMS REPORT ---
Author Author [facility] Medical Staff Organization [facility] Address [address] [place], [place] [address] Phone [phone] Care Team Providers Care Laundry Bag Punch Operator Name Role Phone MARAL OMALLEY MD PP [phone] Summary purpose TRANSITION OF CARE AUTO GENERATION [...] Code Type Description Date Performed Performing Physician 35780 CPT-4 THERAPEUTIC EXERCISES 06-24-2015 SYED JACOBO 19871 CPT-4 PT EVALUATION 06-24-2015 SYED JACOBO 28202 CPT-4 THERAPEUTIC EXERCISES 06-26-2015 SYED JACOBO Functional [...]
== END 2017-02-26 12:38 | disposition home or self-care (01) ==
LOC: SDC 08:11
PROVIDERS: ATTEND Surgery
DX: C43.61 Malignant melanoma of right upper limb, including shoulder (principal); C44.629 Squamous cell carcinoma of skin of left upper limb, including shoulder; I10 Essential (primary) hypertension; E78.5 Hyperlipidemia, unspecified; E11.9 Type 2 diabetes mellitus without complications; Z79.84 Long term (current) use of oral hypoglycemic drugs; Z79.899 Other long term (current) drug therapy
CPT/HCPCS: 82962; 88305; 88341; 88342

== ENCOUNTER 2017-04-01 05:42 | Outpatient (CLI) | payer BC ==
[~2017-04-01] VITALS: Ht 180.3 cm; Wt 82.1 kg
[~2017-04-01 05:42] MED LIST changes: +DOCU-143 PO; +HYDR-3812 PO
== END 2017-04-01 10:46 ==
LOC: PREOP 05:42
PROVIDERS: ATTEND Surgery
DX: Z01.818 Encounter for other preprocedural examination (principal); C43.61 Malignant melanoma of right upper limb, including shoulder

== ENCOUNTER 2017-04-01 09:58 | Outpatient (RCR) | payer BC ==
[2017-04-01 10:58] LABS: BASOPHILS # (AUTO) 0.1 10^3/uL (0.0-0.1); BASOPHILS % (AUTO) 1 % (0-10); EOSINOPHILS # (AUTO) 0.2 10^3/uL (0.0-0.3); EOSINOPHILS % (AUTO) 3 % (0-10); LYMPHOCYTES # (AUTO) 1.8 X 10^3 (1.0-4.0); LYMPHOCYTES % (AUTO) 21 % (12-44); MEAN CORPUSCULAR HEMOGLOBIN 29 PG (25-34); MEAN CORPUSCULAR HGB CONC 33 G/DL (32-36); MEAN CORPUSCULAR VOLUME 88 FL (80-99); MEAN PLATELET VOLUME 10.9 FL (7.4-10.4); MONOCYTES # (AUTO) 0.5 X 10^3 (0.0-1.0); MONOCYTES % (AUTO) 6 % (0-12); NEUTROPHILS # (AUTO) 6.2 X 10^3 (1.8-7.8); NEUTROPHILS % (AUTO) 70 % (42-75); PLATELET COUNT 218 10^3/uL (130-400); RED BLOOD COUNT 4.79 10^6/uL (4.35-5.85); WHITE BLOOD COUNT 8.8 10^3/uL (4.3-11.0)
[2017-04-01 11:33] LABS: ALANINE AMINOTRANSFERASE 26 U/L (0-55); ALBUMIN 4.6 GM/DL (3.2-4.5); ANION GAP 10 MMOL/L (5-14); ASPARTATE AMINO TRANSFERASE 22 U/L (5-34); BILIRUBIN,TOTAL 0.5 MG/DL (0.1-1.0); BLOOD UREA NITROGEN 11 MG/DL (7-18); BUN/CREATININE RATIO 14; CALCIUM 9.8 MG/DL (8.5-10.1); CARBON DIOXIDE 26 MMOL/L (21-32); CHLORIDE 103 MMOL/L (98-107); CREATININE SERUM 0.77 MG/DL (0.60-1.30); GFR ESTIMATED > 60; GLUCOSE 116 MG/DL (70-105); LACTATE DEHYDROGENASE 183 U/L (125-220); POTASSIUM 4.4 MMOL/L (3.6-5.0); SODIUM 139 MMOL/L (135-145); TOTAL PROTEIN 7.8 GM/DL (6.4-8.2)
[2017-04-05] MEDS ORDERED: HYDR-3812 PO (13:12)
== END 2017-05-08 | disposition home or self-care (01) ==
LOC: ONC 09:58
PROVIDERS: ATTEND Internal Medicine Hematology & Oncology
DX: E78.5 Hyperlipidemia, unspecified; M19.91 Primary osteoarthritis, unspecified site; I10 Essential (primary) hypertension; R73.03 Prediabetes; C43.61 Malignant melanoma of right upper limb, including shoulder; Z79.899 Other long term (current) drug therapy
CPT/HCPCS: 36415; 80053; 83615; 85025; 99214

== ENCOUNTER 2017-04-05 06:36 | Day surgery (SDC) | payer BC ==
[~2017-04-05] VITALS: Ht 180.3 cm; Wt 82.1 kg
[2017-04-05 06:55] VITALS: BP 136/75
[2017-04-05] MEDS ORDERED: ceFAZolin 2 GM/50 ML NS 50 ML ONE (07:00)
[2017-04-05] MEDS ORDERED: MIDAZOLAM 2 MG/2 ML (VERSED) VIAL IV ONE (07:00)
[2017-04-05] MEDS ORDERED: MIDAZOLAM 2 MG/2 ML (VERSED) VIAL ONE ×2 (09:44→11:04)
[2017-04-05] MEDS: LACTATED RINGERS 1,000 ML IV PRN ×2 (09:53→12:55)
[2017-04-05] MEDS ORDERED: LIDOCAINE 1% INJ 20 ML (XYLOCAINE) VIAL ONE (09:59)
[2017-04-05] MEDS ORDERED: BUPIVACAINE 0.5% 30 ML (SENSORCAINE) VIAL ONE (09:59)
[2017-04-05] MEDS ORDERED: fentaNYL INJECTION 100 MCG/2 ML AMP ONE ×2 (11:04→12:49)
[2017-04-05] MEDS ORDERED: proPOfol 200 MG/20 ML (DIPRIVAN) VIAL IV ONE (11:04)
--- NOTE | 2017-04-05 11:30 | Progress Note-Pre Operative ---
Pre-Operative Progress Note H&P Reviewed The H&P was reviewed, patient examined and no changes noted. Date Seen by Provider: Apr 05, 2017 Time Seen by Provider: 11: Date H&P Reviewed: Apr 05, 2017 Time H&P Reviewed: 11:29 Pre-Operative Diagnosis: right forearm melanoma ART LARSON DO Apr 05, 2017 11:30
[2017-04-05] MEDS ORDERED: METHYLENE BLUE 1% INJ 1 ML AMP ONE (11:37)
--- OUTSIDE RECORDS SUMMARY | 2017-04-05 12:42 | XMS REPORT ---
Author Author CLINTON JENKINS [facility] Address [address] [place] [address] Care Team Providers Care Senior Quality Assurance Engineer Name Role Phone GREGORYCLINTON Unavailable PROBLEMS Type Condition ICD9-CM Code [id number] Code Onset Dates Condition Status SNOMED Code Problem Anxiety F41.9 Active 72208287 Problem Mixed hyperlipidemia E78.2 Active 284390205 Problem Hot flashes N95.1 Active 348338291 Problem Prediabetes R73.09 Active 727924856 Problem Essential (primary) hypertension I10 Active 76964960 Problem Dyslipidemia E78.5 Active 901048145 ALLERGIES No Known Allergies SOCIAL HISTORY No smoking Hx information available PLAN OF CARE Activity Details Follow Up prn Reason: VITAL SIGNS MEDICATIONS No Known Medications RESULTS Name Result Date Reference Range TSH 2016-08-06 TSH 1.260 0.450-4.500 CBC 2016-08-06 WBC 6.7 3.4-10.8 RBC 4.71 3.77-5.28 Hemoglobin 13.7 11.1-15.9 Hematocrit 41.8 34.0-46.6 MCV 89 79-97 MCH 29.1 26.6-33.0 MCHC 32.8 31.5-35.7 RDW 14.2 12.3-15.4 Platelets 253 150-379 Neutrophils 56 Lymphs 29 Monocytes 7 Eos 7 Basos 1 Immature Cells Neutrophils (Absolute) 3.7 1.4-7.0 Lymphs (Absolute) 1.9 0.7-3.1 Monocytes(Absolute) 0.5 0.1-0.9 Eos (Absolute) 0.5 0.0-0.4 Baso (Absolute) 0.1 0.0-0.2 Immature Granulocytes 0 Immature Grans (Abs) 0.0 0.0-0.1 NRBC 0 0 - 0 Hematology Comments: LIPID PANEL 2016-08-06 Cholesterol, Total 177 100-199 Triglycerides 269 0-149 HDL Cholesterol 64 >39 VLDL Cholesterol Eliot 54 5-40 LDL Cholesterol Calc 59 0-99 CMP 2016-08-06 Glucose, Serum 112 65-99 BUN 15 8-27 Creatinine, Serum 0.68 0.57-1.00 eGFR If NonAfricn Am 95 >59 eGFR If Africn Am 110 >59 BUN/Creatinine Ratio 22 11-26 Sodium, Serum 141 134-144 Potassium, Serum 4.8 3.5-5.2 Chloride, Serum 101 96-106 Carbon Dioxide, Total 23 18-29 Calcium, Serum 9.4 8.7-10.3 Protein, Total, Serum 7.1 6.0-8.5 Albumin, Serum 4.6 3.6-4.8 Globulin, Total 2.5 1.5-4.5 A/G Ratio 1.8 1.1-2.5 Bilirubin, Total 0.3 0.0-1.2 Alkaline Phosphatase, S 72 39-117 AST (SGOT) 25 0-40 ALT (SGPT) 38 0-32 PROCEDURES Procedure Date Ordered Related Diagnosis Body Site VENIPUNCT, ROUTINE* Aug 06, 2016 ASSAY THYROID STIM HORMONE Aug 06, 2016 LIPID PANEL Aug 06, 2016 COMPLETE CBC W/AUTO DIFF WBC Aug 06, 2016 COMPREHEN METABOLIC PANEL Aug 06, 2016 IMMUNIZATIONS No Known Immunizations
--- OUTSIDE RECORDS SUMMARY | 2017-04-05 12:43 | XMS REPORT ---
Author Author Bartolome Jessica Organization [facility] Address [address] [place] [address] Care Team Providers Care Occupational Therapy Assistant Name Role Phone Jaskaran Bartolome Unavailable PROBLEMS Type Condition ICD9-CM Code HRF15-SQ Code Onset Dates Condition Status SNOMED Code Problem Hemangioma of skin and subcutaneous tissue 228.01 Active 461117806 Problem Benign neoplasm of skin of trunk, except scrotum 216.5 Active 871913173 Problem Benign neoplasm of skin of other and unspecified parts of face 216.3 Active 45332743 Problem Benign neoplasm of skin of upper limb, including shoulder 216.6 Active 072773164 Problem Benign neoplasm of skin of lower limb, including hip 216.7 Active 53700815 Problem Other seborrheic keratosis 702.19 Active 661843986 Problem Skin tag L91.8 Active 703523723 Problem 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 Active 956185308 Problem Inflamed seborrheic keratosis 702.11 Active 844648430 Problem Actinic keratosis 702.0 Active 503588092 Problem Seborrheic keratoses L82.1 Active 053718657 Problem Personal history of other malignant neoplasm of skin V10.83 Active 509049360 ALLERGIES Substance Reaction Event Type Date Status Latex Unknown Drug Allergy May, Active Codeine Sulfate Unknown Drug Allergy May, Active SOCIAL HISTORY No smoking Hx information available PLAN OF CARE Activity Details Follow Up prn Reason: VITAL SIGNS MEDICATIONS Medication Instructions Dosage Frequency Start Date End Date Duration Status Pravastatin Sodium Active Aspir-81 Active Lisinopril Active Prednisone Active Cinnamon Flavor Active Effexor Active RESULTS No Results PROCEDURES Procedure Date Ordered Related Diagnosis Body Site Office Visit, Est Pt., Level 2 Jun 02, 2016 IMMUNIZATIONS No Known Immunizations
--- OUTSIDE RECORDS SUMMARY | 2017-04-05 12:44 | XMS REPORT | Continuity of Care Document ---
Author Author [facility] Address Unknown Phone Unavailable Allergies Medications Problems [...] ACTINIC KERATOSIS 08/16/2013 MARAL OMALLEY MD V72.31 IT SOLUTIONS SALES CONSULTANT EXAM, ROUTINE 08/16/2013 MARAL OMALLEY MD V76.10 BREAST CANCER SCREENING 08/16/2013 MARAL OMALLEY MD V76.12 MAMMOGRAM SCREENING 08/16/2013 MARAL OMALLEY MD V76.51 COLON CANCER SCREENING 08/16/2013 MARAL OMALLEY MD 272.4 HYPERLIPIDEMIA 08/16/2013 MARAL OMALLEY MD 702.0 ACTINIC KERATOSIS 08/16/2013 MARAL OMALLEY MD V72.31 IT SOLUTIONS SALES CONSULTANT EXAM, ROUTINE 08/16/2013 MARAL OMALLEY MD V76.10 BREAST CANCER SCREENING 08/16/2013 MARAL OMALLEY MD V76.12 MAMMOGRAM SCREENING 08/16/2013 MARAL OMALLEY MD V76.51 COLON CANCER SCREENING 08/16/2013 MARAL OMALLEY MD 272.4 HYPERLIPIDEMIA 08/16/2013 MARAL OMALLEY MD 702.0 ACTINIC KERATOSIS 08/16/2013 MARAL OMALLEY MD V72.31 IT SOLUTIONS SALES CONSULTANT EXAM, ROUTINE 08/16/2013 MARAL OMALLEY MD V76.10 BREAST CANCER SCREENING 08/16/2013 MARAL OMALLEY MD V76.12 MAMMOGRAM SCREENING 08/16/2013 MARAL OMALLEY MD V76.51 COLON CANCER SCREENING 08/16/2013 MARAL OMALLEY MD 272.4 HYPERLIPIDEMIA 08/16/2013 MARAL OMALLEY MD 702.0 ACTINIC KERATOSIS 08/16/2013 MARAL OMALLEY MD V72.31 IT SOLUTIONS SALES CONSULTANT EXAM, ROUTINE 08/16/2013 MARAL OMALLEY MD V76.10 BREAST CANCER SCREENING 08/16/2013 MARAL OMALLEY MD V76.12 MAMMOGRAM SCREENING 08/16/2013 MARAL OMALLEY MD V76.51 COLON CANCER SCREENING 08/16/2013 MARAL OMALLEY MD 272.4 HYPERLIPIDEMIA 08/16/2013 MARAL OMALLEY MD 702.0 ACTINIC KERATOSIS 08/16/2013 MARAL OMALLEY MD V72.31 IT SOLUTIONS SALES CONSULTANT EXAM, ROUTINE 08/16/2013 MARAL OMALLEY MD V76.10 [...] OF JOINT OF OTHER SPECIFIED SITES 10/06/2013 MARLA OMALLEY MD 719.46 PAIN IN JOINT INVOLVING [...] Procedures Code [place] [address] CBC 05/10/2013 46212 LIPID PANEL 05/10 88181 CMP 05/10/2013 5171466 GFR CALC (RESULT ONLY) 05/10/2013 08929 HEMOCCULT 2013 94776 MAMMOGRAM, SCREENING 08/16/2013 [facility] 08/16/2013 37904 CRYOTHERAPY OF SKIN 08/21/2013 56057 MAMMOGRAM, SCREENING 08/21/2013 11280 PAP SMEAR 2013 [facility] 08/21/2013 49185 XRAY KNEE RIGHT 3 VIEWS 10/06/2013 73143 ROUTINE VENIPUNCTURE 07/25/2014 21033 CMP 07/26/2014 30226 LIPID PANEL 07/26 85621 CBC 07/26/2014 15476 MAMMOGRAM, SCREENING 08/22/2014 49260 HIDA SCAN 2014 96717 ROUTINE VENIPUNCTURE 10/30/2014 67787 CMP 10/30/2014 4241503 GFR CALC (RESULT ONLY) 10/30/2014 07264 US ABDOMINAL ULTRASOUND, COMPLETE 11/02/2014 41995 CHEST X-RAY 10/13 77671 COMP SCREEN MAMMOGRAM ADD-ON 10/29/2015 17643 MAMMOGRAM, SCREENING 10/29/2015 Results Encounters ACCT No. Visit Date/Time Discharge Status Pt. Type Provider Facility Loc./Unit Complaint [id number] 10/30/2014 14:36:00 10/30/2014 23: 59:59 CLS Outpatient MARAL OMALLEY MD [id number] 08/06/2014 10:15:00 08/06/2014 23: 59:59 CLS Outpatient MARAL OMALLEY MD [id number] 07/25/2014 08:51:00 07/25/2014 23: 59:59 CLS Outpatient MARAL OMALLEY MD [id number] 10/17/2013 09:55:00 10/17/2013 23: 59:59 CLS Outpatient MARAL OMALLEY MD [id number] 08/16/2013 08:42:00 08/16/2013 23: 59:59 CLS Outpatient MARAL OMALLEY MD [id number] 05/10/2013 09:33:00 05/10/2013 23: 59:59 CLS Outpatient MARAL OMALLEY MD [id number] 2015 21:27:27 2015 23: 59:59 CLS Outpatient Kalie Adhikari [id number] 07/11/2014 10:12:39 07/11/2014 23: 59:59 CLS Outpatient Sydnee Barragan [id number] 06/21/2014 10:13:49 06/21/2014 23: 59:59 CLS Outpatient Sydnee Barragan [id number] 04/19/2014 10:17:14 04/19/2014 23: 59:59 CLS Outpatient Sydnee Barragan [id number] 10/29/2015 10:25:00 10/29/2015 10 :25:00 DIS Outpatient MARAL MOALLEY [facility] RAD [id number] 10/14/2015 14:57:00 10/14/2015 14 :57:00 DIS Outpatient CHRIS SOFIA [facility] PANACE [id number] 08/09/2015 00:01:00 09/06/2015 14:03:00 DIS Outpatient ODALIS SYED [facility] PT [id number] 07/09/2015 00:01:00 08/08/2015 23:59:00 DIS Outpatient ZEESHAN JACOBOFABRIZIO Beck [facility] PT [id number] 06/24/2015 08:52:00 07/08/2015 23:59:00 DIS Outpatient ODALIS SYED Beck [facility] PT [id number] 12/25/2014 09:47:00 12/25/2014 09 :47:00 DIS Outpatient ART PHILIP [facility] RAD [id number] 11/29/2014 08:20:00 11/29/2014 08 :20:00 DIS Outpatient SKY CUBA [facility] RAD [id number] 11/02/2014 07:48:00 11/02/2014 07 :48:00 DIS Outpatient SKY CUBA [facility] RAD [id number] 06/19/2014 10:26:00 06/19/2014 10 :26:00 DIS Outpatient ART PHILIP [facility] RAD
[2017-04-05] MEDS ORDERED: LACTATED RINGERS 2,000 ML IV ONE (13:02)
[2017-04-05] MEDS ORDERED: ONDANSETRON 4 MG/2 ML (SDV) Z0FRAN ONE (13:02)
[2017-04-05] MEDS ORDERED: SEVOFLURANE (ULTANE) 15 ML INHAL SOLN ONE (13:02)
[2017-04-05] MEDS ORDERED: HYDR-3812 PO (13:12)
--- NOTE | 2017-04-05 13:14 | Discharge Inst-Simple/Standard ---
Discharge Inst-Standard Discharge Medications New, Converted or Re-Newed RX: RX on Chart Patient Instructions/Follow Up Plan of Care/Instructions/FU: 2 weeks Anai Activity as Tolerated: No Discharge Diet: Regular Diet Other Inst to Patient Follow up Appt: Make appointment for 2 week. Instructions: No lifting greater than 10 pounds. No strenuous activity. May shower in 24 hours, no tub bath or soaking. Use incentive spirometer at home as directed. No Smoking Skin/Wound Care: May remove bandages in 24 hours. You need to leave glue over incision it will fall off on its own. Symptoms to Report: Appetite Changes, Extremity Discoloration, Numbness/Tingling, Swelling Increased , Bleeding Excessive, Eyesight Changes, Pain Increased, Urine Color Change, Constipation(Persistent), Fever over 101 degree F, Pain/Pressure in chest, Urinating Difficulty, Cough Up/Vomit Blood, Heart Beat Irreg/Pounding, Pain/ Pressure in jaw, Vaginal Bleeding Increase, Cramps in feet or legs, Lightheadedness, Pain/Pressure in shoulder, Diarrhea(Persistent), Memory Changes Suddenly, Questions/Concerns, Weight gain consecutive days, Dizziness/ Fainting, Nausea/Vomiting, Shortness of Breath, Weight gain over 2 pounds If questions or concerns contact your physician Or seek help at emergency department. ART LARSON DO Apr 05, 2017 1:14 pm
[2017-04-05] MEDS ORDERED: HYDROcodone/APAP 5 MG/325 MG (LORTAB) TAB ONE (14:07)
[2017-04-05 14:15] VITALS: BP 120/68
[2017-04-05] MEDS ORDERED: HYDROcodone/APAP 5 MG/325 MG (LORTAB) TAB PO PRN (14:15)
[2017-04-05 14:45] VITALS: BP 130/76
--- NOTE | 2017-04-05 18:13 | Progress Note-Post Operative ---
Post-Operative Progess Note Surgeon (s)/Ophthalmic Tech (s) Surgeon ART LARSON DO Ophthalmic Tech: na Pre-Operative Diagnosis right forearm melanoma Post-Operative Diagnosis same Procedure & Operative Findings Date of Procedure 04/05/17 Procedure Performed/Findings re-excision right forearm melanoma with sentinel lymph node biopsy Anesthesia Type gen Estimated Blood Loss Estimated blood loss (mL): 50 mL Specimens/Packing Specimens Removed sentinel lymph node right axilla, and right forearm re-excision melanoma ART LARSON DO Apr 05, 2017 18:13
--- NOTE | 2017-04-06 08:39 | OPERATIVE REPORT ---
DATE OF SERVICE: 04/05/2017 PREOPERATIVE DIAGNOSIS: Melanoma, right forearm. POSTOPERATIVE DIAGNOSIS: Melanoma, right forearm. PROCEDURE: Reexcision melanoma right forearm and sentinel node biopsy. SURGEON: Art Ospina DO. ANESTHESIA: General. ESTIMATED BLOOD LOSS: 50 mL. COMPLICATIONS: None. INDICATIONS: The patient is a 61-year-old female with melanoma of the right forearm. She had previously had melanoma on the right forearm excised; however, margins were not quite adequate. The melanoma was removed completely though. The patient was discussed reexcision and sentinel node biopsy or just reexcision. The patient wishes to proceed with reexcision and sentinel node biopsy. She understands and wishes to proceed. Consent was signed and on the chart. DESCRIPTION OF PROCEDURE: The patient was taken to the operating suite, she was prepped and draped in sterile fashion. Surgical pause was performed. Neoprobe was used to isolate the sentinel lymph node. A small incision was made in the axilla and taken down through the subcutaneous fat and continued until the lymph node was encountered. This was then dissected around and removed. The Neoprobe was placed on 100 times sensing count and the count was 1726. The axilla was re-probed without hitting any other sources with the Neoprobe. Background counts at 100 times per 10 seconds was then performed and was 35. At this time, the axilla was again palpated through the incision. There were no other palpable nodes present. The wound was then irrigated with copious amounts of irrigation and then the deep subcutaneous tissues were then reapproximated. The subcutaneous tissues were then reapproximated using 3-0 Vicryl. The skin was then closed using 4-0 Vicryl in a running subcuticular fashion. The area was washed and dried and Dermabond was placed over the incision. At this time, attention was then placed to the right forearm for reexcision. Local anesthetic was infiltrated into the area. An elliptical incision measuring 11.5 x 1.7 cm was made around the existing scar. The skin and subcutaneous tissue was removed. The skin edges were elevated. Cautery was used to mobilize the subcutaneous tissue from the skin to help with reapproximation. Hemostasis was achieved. The skin was then closed using 2-0 nylon in a vertical mattress in simple interrupted fashion. The area was then washed and dried, sterile bandages were applied. The patient tolerated the procedure well without any complications. She was taken to the recovery room in stable condition. Job ID: [id number] DocumentID: [id number] Dictated Date: 04/06/2017 08:22:59 Sole Painter Date: 04/06/2017 08:39:07 Dictated By: ART OSPINA DO
== END 2017-04-05 15:15 | disposition home or self-care (01) ==
LOC: SDC 06:36
PROVIDERS: ATTEND Surgery
DX: C43.61 Malignant melanoma of right upper limb, including shoulder (principal); E78.5 Hyperlipidemia, unspecified; I10 Essential (primary) hypertension; R73.03 Prediabetes; Z79.899 Other long term (current) drug therapy
CPT/HCPCS: 82962; 87081; 94664

== ENCOUNTER 2017-09-30 09:53 | Outpatient (RCR) | payer BC ==
[~2017-09-30 09:53] MED LIST changes: +ACHD5005 PO; -HYDR-3812 PO; -METF500T4 PO; +METF500T5 PO
[2017-09-30 10:09] LABS: BASOPHILS # (AUTO) 0.1 10^3/uL (0.0-0.1); BASOPHILS % (AUTO) 1 % (0-10); EOSINOPHILS # (AUTO) 0.3 10^3/uL (0.0-0.3); EOSINOPHILS % (AUTO) 4 % (0-10); HEMATOCRIT 42 % (35-52); HEMOGLOBIN 14.1 G/DL (11.5-16.0); LYMPHOCYTES % (AUTO) 29 % (12-44); MEAN CORPUSCULAR HEMOGLOBIN 30 PG (25-34); MEAN CORPUSCULAR HGB CONC 34 G/DL (32-36); MEAN CORPUSCULAR VOLUME 88 FL (80-99); MEAN PLATELET VOLUME 11.6 FL (7.4-10.4); MONOCYTES # (AUTO) 0.5 X 10^3 (0.0-1.0); MONOCYTES % (AUTO) 8 % (0-12); NEUTROPHILS # (AUTO) 3.9 X 10^3 (1.8-7.8); NEUTROPHILS % (AUTO) 59 % (42-75); PLATELET COUNT 188 10^3/uL (130-400); RED BLOOD COUNT 4.76 10^6/uL (4.35-5.85); WHITE BLOOD COUNT 6.7 10^3/uL (4.3-11.0)
[2017-09-30 10:29] LABS: ALANINE AMINOTRANSFERASE 23 U/L (0-55); ALBUMIN 4.6 GM/DL (3.2-4.5); ALKALINE PHOSPHATASE 73 U/L (40-136); BILIRUBIN,TOTAL 0.4 MG/DL (0.1-1.0); BUN/CREATININE RATIO 12; CALCIUM 9.9 MG/DL (8.5-10.1); CARBON DIOXIDE 24 MMOL/L (21-32); CHLORIDE 105 MMOL/L (98-107); CREATININE SERUM 0.91 MG/DL (0.60-1.30); GFR ESTIMATED > 60; GLUCOSE 86 MG/DL (70-105); POTASSIUM 4.5 MMOL/L (3.6-5.0); SODIUM 139 MMOL/L (135-145); TOTAL PROTEIN 7.8 GM/DL (6.4-8.2)
== END 2017-12-29 | disposition home or self-care (01) ==
LOC: ONC 09:53
PROVIDERS: ATTEND Internal Medicine Hematology & Oncology
DX: C43.61 Malignant melanoma of right upper limb, including shoulder (principal); I10 Essential (primary) hypertension; E78.5 Hyperlipidemia, unspecified; E11.9 Type 2 diabetes mellitus without complications; M19.91 Primary osteoarthritis, unspecified site; Z79.899 Other long term (current) drug therapy; Z79.82 Long term (current) use of aspirin; Z79.84 Long term (current) use of oral hypoglycemic drugs
CPT/HCPCS: 36415; 80053; 83615; 85025; 99213

== ENCOUNTER → 2018-10-06 | Outpatient (CLI) | payer BC ==
[~2018-10-06] MED LIST changes: +METF-397 PO; -METF500T5 PO
== END ==
LOC: ONC 12:40
PROVIDERS: ATTEND Internal Medicine Hematology & Oncology
DX: C43.61 Malignant melanoma of right upper limb, including shoulder (principal); I10 Essential (primary) hypertension; E78.5 Hyperlipidemia, unspecified; E11.9 Type 2 diabetes mellitus without complications; M19.91 Primary osteoarthritis, unspecified site; Z79.899 Other long term (current) drug therapy; Z79.82 Long term (current) use of aspirin; Z79.84 Long term (current) use of oral hypoglycemic drugs
CPT/HCPCS: 99213

== ENCOUNTER → 2019-04-06 | Outpatient (CLI) | payer BC | LOC: ONC 12:24 | PROVIDERS: ATTEND Internal Medicine Hematology & Oncology | DX: C43.61 Malignant melanoma of right upper limb, including shoulder (principal); I10 Essential (primary) hypertension; E78.5 Hyperlipidemia, unspecified; E11.9 Type 2 diabetes mellitus without complications; M19.91 Primary osteoarthritis, unspecified site; Z79.899 Other long term (current) drug therapy; Z79.82 Long term (current) use of aspirin; Z79.84 Long term (current) use of oral hypoglycemic drugs | CPT/HCPCS: 99213 ==

== ENCOUNTER → 2020-04-09 | Outpatient (CLI) | payer BC ==
[~2020-04-09] MED LIST changes: +SIMV40TA25 PO; -SIMV40TA4 PO
[2020-04-09 13:08] LABS: BASOPHILS # (AUTO) 0.1 10^3/uL (0.0-0.1); BASOPHILS % (AUTO) 1 % (0-10); EOSINOPHILS # (AUTO) 0.5 10^3/uL (0.0-0.3); EOSINOPHILS % (AUTO) 7 % (0-10); HEMATOCRIT 40 % (35-52); HEMOGLOBIN 13.3 G/DL (11.5-16.0); LYMPHOCYTES # (AUTO) 2.3 X 10^3 (1.0-4.0); LYMPHOCYTES % (AUTO) 30 % (12-44); MEAN CORPUSCULAR HEMOGLOBIN 30 PG (25-34); MEAN CORPUSCULAR HGB CONC 33 G/DL (32-36); MEAN CORPUSCULAR VOLUME 89 FL (80-99); MEAN PLATELET VOLUME 10.6 FL (7.4-10.4); MONOCYTES # (AUTO) 0.4 X 10^3 (0.0-1.0); MONOCYTES % (AUTO) 6 % (0-12); NEUTROPHILS # (AUTO) 4.3 X 10^3 (1.8-7.8); NEUTROPHILS % (AUTO) 56 % (42-75); PLATELET COUNT 189 10^3/uL (130-400); RED CELL DISTRIBUTION WIDTH 12.8 % (10.0-14.5); WHITE BLOOD COUNT 7.7 10^3/uL (4.3-11.0)
[2020-04-09 13:30] LABS: ALANINE AMINOTRANSFERASE 27 U/L (0-55); ALBUMIN 4.5 GM/DL (3.2-4.5); ALKALINE PHOSPHATASE 60 U/L (40-136); BILIRUBIN,TOTAL 0.3 MG/DL (0.1-1.0); BUN/CREATININE RATIO 23; CALCIUM 9.2 MG/DL (8.5-10.1); CARBON DIOXIDE 26 MMOL/L (21-32); CHLORIDE 104 MMOL/L (98-107); GFR ESTIMATED > 60; GLUCOSE 146 MG/DL (70-105); SODIUM 138 MMOL/L (135-145); TOTAL PROTEIN 7.3 GM/DL (6.4-8.2)
== END ==
LOC: ONC 12:49
PROVIDERS: ATTEND Internal Medicine Hematology & Oncology
DX: C43.61 Malignant melanoma of right upper limb, including shoulder (principal); E78.5 Hyperlipidemia, unspecified; E11.9 Type 2 diabetes mellitus without complications; Z98.890 Other specified postprocedural states
CPT/HCPCS: 80053; 83615; 85025; G0463; 99213

== ENCOUNTER → 2021-04-10 | Outpatient (CLI) | payer MEDICARE ==
[~2021-04-10] MED LIST changes: -LISI-556 PO; +LISI-729 PO
[2021-04-10 13:12] LABS: BASOPHILS # (AUTO) 0.1 10^3/uL (0.0-0.1); BASOPHILS % (AUTO) 2 % (0-10); EOSINOPHILS # (AUTO) 0.2 10^3/uL (0.0-0.3); EOSINOPHILS % (AUTO) 5 % (0-10); HEMATOCRIT 43 % (35-52); HEMOGLOBIN 13.8 g/dL (11.5-16.0); LYMPHOCYTES # (AUTO) 1.8 10^3/uL (1.0-4.0); LYMPHOCYTES % (AUTO) 41 % (12-44); MEAN CORPUSCULAR HEMOGLOBIN 30 pg (25-34); MEAN CORPUSCULAR HGB CONC 32 g/dL (32-36); MEAN CORPUSCULAR VOLUME 92 fL (80-99); MEAN PLATELET VOLUME 10.2 fL (9.0-12.2); MONOCYTES # (AUTO) 0.4 10^3/uL (0.0-1.0); MONOCYTES % (AUTO) 8 % (0-12); NEUTROPHILS % (AUTO) 44 % (42-75); PLATELET COUNT 233 10^3/uL (130-400); WHITE BLOOD COUNT 4.5 10^3/uL (4.3-11.0)
[2021-04-10 13:41] LABS: ALANINE AMINOTRANSFERASE 28 U/L (0-55); ALBUMIN 4.8 GM/DL (3.2-4.5); ALKALINE PHOSPHATASE 60 U/L (40-136); BILIRUBIN,TOTAL 0.4 MG/DL (0.1-1.0); BUN/CREATININE RATIO 19; CALCIUM 9.9 MG/DL (8.5-10.1); CARBON DIOXIDE 27 MMOL/L (21-32); CHLORIDE 105 MMOL/L (98-107); CREATININE SERUM 0.77 MG/DL (0.60-1.30); GFR ESTIMATED 75; GLUCOSE 123 MG/DL (70-105); POTASSIUM 3.6 MMOL/L (3.6-5.0); SODIUM 141 MMOL/L (135-145); TOTAL PROTEIN 8.3 GM/DL (6.4-8.2)
== END ==
LOC: ONC 12:22
PROVIDERS: ATTEND Internal Medicine Hematology & Oncology
DX: Z08 Encounter for follow-up examination after completed treatment for malignant neoplasm (principal); Z85.820 Personal history of malignant melanoma of skin; E78.5 Hyperlipidemia, unspecified; Z79.82 Long term (current) use of aspirin; Z79.899 Other long term (current) drug therapy
CPT/HCPCS: 80053; 83615; 85025; G0463; 99213